=== PATIENT | male | born 1945 | race Caucasian/White ===

== ENCOUNTER 2016-08-07 18:47 | Emergency (ER) | payer OTHER, MEDICARE ==
[~2016-08-07] VITALS: Ht 177.8 cm; Wt 71.1 kg
[~2016-08-07 18:47] MED LIST: ACID1TAB3 PO; AMOX1TAB64 PO; ATOR80TA75 PO; BUDE10.22 INH; IBUP800T PO; METR500T PO; OMEP-110 PO; OXYC-302 PO; PIPE3.375 IV; PRIM50TA PO; Pantoprazole Sodium PO
[2016-08-07 18:50] VITALS: BP 108/72
[2016-08-07 19:31] LABS: BLOOD UREA NITROGEN 8 mg/dL (7-18)
[2016-08-07] MEDS ORDERED: OMNIPAQUE 350 MG/ML, 150 ML BOTTLE ONE (19:35)
== END 2016-08-07 21:26 | disposition home or self-care (01) ==
LOC: ED 19:17
DX: K22.10 Ulcer of esophagus without bleeding (principal); J44.9 Chronic obstructive pulmonary disease, unspecified; Z87.891 Personal history of nicotine dependence
CPT/HCPCS: 36415; 74220; 80048; 82040; 85025; 99285; Q9967

== ENCOUNTER → 2016-09-05 | Outpatient (CLI) | payer MEDICARE, OTHER ==
[~2016-09-05] MED LIST changes: +PANT40TA5 PO
== END | disposition home or self-care (01) ==
LOC: STAR 13:43
PROVIDERS: ATTEND Surgery Vascular Surgery
DX: Z02.9 Encounter for administrative examinations, unspecified (principal)

== ENCOUNTER 2016-09-11 05:50 | Inpatient (IN) | payer OTHER, MEDICARE ==
[2016-09-11] MEDS ORDERED: BUPIVACAINE/PF-EPI 0.5% 1:200K ONE (07:03)
[2016-09-11] MEDS ORDERED: THROMBIN 5,000 UNIT VIAL TP ONE (07:04)
[2016-09-11] MEDS ORDERED: HEPARIN 1,000 UNITS/ML, 10ML ONE (07:09)
[2016-09-11] MEDS ORDERED: MIDAZOLAM 1 MG/ML, 2ML ONE (07:14)
[2016-09-11] MEDS ORDERED: FENTANYL PF 250 MCG/5ML ONE (07:14)
[2016-09-11] MEDS ORDERED: ROCURONIUM 10 MG/ML ONE (07:27)
[2016-09-11] MEDS ORDERED: DEXAMETHASONE 4 MG/ML, 1ML ONE (07:27)
[2016-09-11] MEDS ORDERED: PROPOFOL 10 MG/ML, 20ML ONE (07:27)
[2016-09-11] MEDS ORDERED: CEFAZOLIN 1,000 MG ONE (07:27)
[2016-09-11] MEDS ORDERED: ONDANSETRON 2MG/ML, 2ML ONE (07:27)
[2016-09-11] MEDS: PANTOPROZOLE 40MG TABLET PO SCH ×2 (08:20→20:35)
[2016-09-11] MEDS: PRIMIDONE 50 MG TABLET PO SCH ×2 (08:20→20:35)
[2016-09-11] MEDS ORDERED: SODIUM CHLORIDE FLUSH 10ML SYR IVF SCH (09:00)
[2016-09-11] MEDS ORDERED: morphine SULFATE 10 MG/ML, 1ML IV PRN (09:00)
[2016-09-11] MEDS: OXYcodone 5 MG/5 ML ORAL.SOL UDC PO PRN ×2 (09:35→10:10)
[2016-09-11] MEDS: FENTANYL PF 100 MCG/2ML IV PRN ×3 (09:35→10:10)
[2016-09-11] MEDS ORDERED: OXYcodone 5 MG/5 ML ORAL.SOL UDC ONE (09:38)
[2016-09-11] MEDS ORDERED: ACETAMINOPHEN 325 MG TABLET ONE (09:38)
[2016-09-11] MEDS ORDERED: FENTANYL PF 100 MCG/2ML ONE (09:38)
[2016-09-11] MEDS ORDERED: ACETAMINOPHEN 650 MG/20.3 ML UDC ONE (09:38)
[2016-09-11] MEDS ORDERED: D5%-0.45NACL+KCL 20MEQ 1,000 ML IV SCH (12:00)
[2016-09-11] MEDS ORDERED: ONDANSETRON 2MG/ML, 2ML IV PRN (12:00)
[2016-09-11] MEDS ORDERED: CEFAZOLIN PMX 1GM/50ML 50 ML IVPB SCH (15:00)
[2016-09-11] MEDS: FLUTICASONE/VILANTEROL 200-25MCG/INH INH SCH (20:30)
[2016-09-12] MEDS: OXYcodone 5 MG/5 ML ORAL.SOL UDC PO PRN ×3 (01:47→12:15)
[2016-09-12] MEDS ORDERED: OXYcodone 5 MG/5 ML ORAL.SOL UDC ONE ×3 (03:37→12:15)
[2016-09-12] MEDS: FLUTICASONE/VILANTEROL 200-25MCG/INH INH SCH (08:20)
[2016-09-12] MEDS ORDERED: ACETAMINOPHEN 325 MG TABLET PO PRN (14:00)
[2016-09-12] MEDS ORDERED: VISIPAQUE 270 MG/ML, 150ML BOTTLE ONE (14:22)
[2016-09-14 10:06] LABS: BLOOD UREA NITROGEN 5 mg/dL (7-18)
== END 2016-09-12 13:20 | disposition home or self-care (01) | DRG 269 ==
LOC: ORIP 05:50 → 4NOR 10:45 → DCLOUNGE 09-12 12:50
PROVIDERS: ADMIT Surgery Vascular Surgery; ATTEND Surgery Vascular Surgery
PROC: 047D3DZ Dilation of Left Common Iliac Artery with Intraluminal Device, Percutaneous Approach (ICD-10-PCS; 2016-09-11)
PROC: B4101ZZ Fluoroscopy of Abdominal Aorta using Low Osmolar Contrast (ICD-10-PCS; 2016-09-11)
PROC: 04V03D6 (ICD-10-PCS; principal; 2016-09-11 07:30)
DX: I71.4 Abdominal aortic aneurysm, without rupture (principal); I70.8 Atherosclerosis of other arteries; K21.9 Gastro-esophageal reflux disease without esophagitis; J44.9 Chronic obstructive pulmonary disease, unspecified; Z87.891 Personal history of nicotine dependence
CPT/HCPCS: 34812; 34825; 36415; 37221; 75952; 75953; 80048; 85025; 86850; 86900; C1725; J0690; J1100; J1644; J2250; J2405; J2704; J3010; Q9966; C1751; C1768; C1769; C1874; C1894; J3480

== ENCOUNTER → 2017-01-02 | Outpatient (CLI) | payer MEDICARE, OTHER ==
[~2017-01-02] MED LIST changes: +ATOR-2 PO; -ATOR80TA75 PO; +IBUP-1223 PO; -IBUP800T PO; +OMNIPAQUE 350 MG/ML, 100ML BOTTLE ONE
== END | disposition home or self-care (01) ==
LOC: CFH 13:06
PROVIDERS: ATTEND Surgery Vascular Surgery
DX: I71.4 Abdominal aortic aneurysm, without rupture (principal); N40.1 Benign prostatic hyperplasia with lower urinary tract symptoms; N28.0 Ischemia and infarction of kidney; N28.1 Cyst of kidney, acquired; R91.8 Other nonspecific abnormal finding of lung field
CPT/HCPCS: 74174; Q9967

== ENCOUNTER → 2018-01-01 | Outpatient (CLI) | payer OTHER | END | disposition home or self-care (01) | LOC: CFH 09:03 | PROVIDERS: ATTEND Surgery Vascular Surgery | DX: J43.9 Emphysema, unspecified (principal); R91.8 Other nonspecific abnormal finding of lung field; I71.4 Abdominal aortic aneurysm, without rupture; N28.1 Cyst of kidney, acquired; N40.0 Benign prostatic hyperplasia without lower urinary tract symptoms; I71.1 Thoracic aortic aneurysm, ruptured | CPT/HCPCS: 71250; 74174; Q9967 ==

== ENCOUNTER 2018-02-06 06:56 | Day surgery (SDC) | payer OTHER ==
[~2018-02-06] VITALS: Ht 177.8 cm; Wt 79.2 kg
[~2018-02-06 06:56] MED LIST changes: -OMNIPAQUE 350 MG/ML, 100ML BOTTLE ONE; +PRED10TA PO
[2018-02-06 07:43] VITALS: BP 116/78
[2018-02-06] MEDS ORDERED: MIDAZOLAM 1 MG/ML, 5ML ONE (09:49)
[2018-02-06] MEDS ORDERED: FLUMAZENIL 0.1 MG/1 ML, 5ML ONE (09:49)
[2018-02-06] MEDS ORDERED: FENTANYL PF 100 MCG/2ML ONE (09:49)
[2018-02-06] MEDS ORDERED: NALOXONE 1 MG/ML, 2ML ONE ×2 (09:50→10:44)
[2018-02-06] MEDS ORDERED: LIDOCAINE-MPF 1%, 5ML ONE (09:53)
[2018-02-06] MEDS ORDERED: PRIM50TA PO ×2 (11:23→16:17)
[2018-02-06] MEDS ORDERED: LISI1TAB3 PO (11:27)
[2018-02-06] MEDS ORDERED: AMOX1TAB64 PO (11:27)
[2018-02-06] MEDS ORDERED: PRED20TA PO (11:29)
[2018-02-06] MEDS ORDERED: TRILOGY (11:30)
[2018-02-06] MEDS ORDERED: FLUT1BLS3 INH (16:17)
[2018-02-06] MEDS ORDERED: PRED10TA PO (16:17)
[2018-02-07] MEDS ORDERED: ATOR40TA78 PO (11:00)
[2018-02-07] MEDS ORDERED: ASPI-515 PO/NG (11:00)
== END 2018-02-06 07:43 | disposition home or self-care (01) ==
LOC: OUT 06:56 → EDSTATUS 09:00
PROVIDERS: ATTEND Internal Medicine Critical Care Medicine
DX: R91.1 Solitary pulmonary nodule (principal); D75.1 Secondary polycythemia; E78.00 Pure hypercholesterolemia, unspecified; J43.9 Emphysema, unspecified; I10 Essential (primary) hypertension; Z72.0 Tobacco use; Z79.899 Other long term (current) drug therapy
CPT/HCPCS: 32405; 70450; 77012; 88305; C2613; J2250; J2310; J3010

== ENCOUNTER → 2018-02-22 | Outpatient (CLI) | payer OTHER ==
[~2018-02-22] MED LIST changes: +ASPI-515 PO/NG; +ATOR40TA78 PO; +FLUT1BLS3 INH; +LISI1TAB3 PO; +PRED20TA PO; +TRILOGY
== END | disposition home or self-care (01) ==
LOC: PETCFH 07:30
PROVIDERS: ATTEND Internal Medicine Critical Care Medicine
DX: J43.9 Emphysema, unspecified (principal); R59.0 Localized enlarged lymph nodes
CPT/HCPCS: 78815; A9552

== ENCOUNTER → 2018-07-09 | Outpatient (CLI) | payer OTHER | END | disposition home or self-care (01) | LOC: CFH 12:55 | PROVIDERS: ATTEND Internal Medicine Critical Care Medicine | DX: J43.9 Emphysema, unspecified (principal); R91.8 Other nonspecific abnormal finding of lung field; N28.1 Cyst of kidney, acquired; J98.4 Other disorders of lung; I25.10 Atherosclerotic heart disease of native coronary artery without angina pectoris; I70.0 Atherosclerosis of aorta; M43.8X4 Other specified deforming dorsopathies, thoracic region | CPT/HCPCS: 71250 ==

== ENCOUNTER 2018-09-17 12:45 | Outpatient (CLI) | payer OTHER | END 2018-09-17 23:59 | disposition home or self-care (01) | LOC: PETCFH 12:45 | PROVIDERS: ATTEND Internal Medicine Critical Care Medicine | DX: J43.9 Emphysema, unspecified (principal); R91.1 Solitary pulmonary nodule | CPT/HCPCS: 78815; A9552 ==

== ENCOUNTER 2019-01-28 14:24 | Outpatient (CLI) | payer OTHER ==
[~2019-01-28 14:24] MED LIST changes: +LISI1TAB23 PO; -LISI1TAB3 PO
== END 2019-01-28 23:59 | disposition home or self-care (01) ==
LOC: RAD 14:24
PROVIDERS: ATTEND Internal Medicine Critical Care Medicine
DX: J43.9 Emphysema, unspecified (principal)
CPT/HCPCS: 71046